=== PATIENT | male | born 1940 | race Caucasian/White ===

== ENCOUNTER 2018-01-17 09:23 | Inpatient (IN) | payer OTHER ==
[2018-01-17] VITALS (8 sets, daily range): BP systolic 101–139; BP diastolic 63–77
[~2018-01-17] VITALS: Ht 170.2 cm; Wt 80.7 kg
[2018-01-17 09:47] LABS: microscopic required? NO
[2018-01-17 10:27] LABS: urine erythrocyte NEGATIVE (NEGATIVE)
[2018-01-17] MEDS ORDERED: VENTOLIN H0.09 MG/A1 INH (10:28)
[2018-01-17 10:35] LABS: PLATELET COUNT 196 x10^3mcL (130-400); RED CELL DISTRIBUTION WIDTH 13.5 % (11.5-14.5)
[2018-01-17] MEDS ORDERED: ATORVASTATIN CA40 M1 PO (10:35)
[2018-01-17] MEDS ORDERED: PRAZOSIN HYDROCH1 MG (10:35)
[2018-01-17 10:38] LABS: CALCIUM 7.9 mg/dL (8.5-10.1); CARBON DIOXIDE 27.4 mmol/L (21-32); CHLORIDE SERUM 107 mmol/L (98-107); CREATININE SERUM 1.6 mg/dL (0.7-1.3); GLUCOSE SERUM 153 mg/dL (74-106); POTASSIUM SERUM 4.9 mmol/L (3.5-5.1); SODIUM SERUM 142 mmol/L (136-145)
[2018-01-17] MEDS ORDERED: DRISDOL50000 IU PO (10:38)
[2018-01-17] MEDS ORDERED: COZAAR100 MG PO (10:38)
[2018-01-17] MEDS ORDERED: LEVOTHYROXINE0.1 M2 PO (10:38)
[2018-01-17] MEDS ORDERED: NOR5 PO (10:39)
[2018-01-17 10:43] LABS: ALBUMIN 2.4 g/dL (3.4-5.0); ALKALINE PHOSPHATASE 91 U/L (46-116); ALT/SGPT 12 U/L (16-63); AST/SGOT 39 U/L (15-37); BILIRUBIN TOTAL 0.63 mg/dL (0.20-1.00); CHOLESTEROL 133 mg/dL (<200); HDL CHOLESTEROL 39 mg/dL (40-60); TOTAL PROTEIN, SERUM 7.1 g/dL (6.4-8.2)
[2018-01-17 11:38] LABS: BAND NEUTROPHIL 19 % (0-10); BASOPHIL 0 % (0-2); MONOCYTE 25 % (0-7); SEGMENTED NEUTROPHILS 19 % (37-75)
[2018-01-17 11:42] LABS: rbc morphology (normal/abnorm) NORMAL (NORMAL)
[2018-01-18] VITALS (14 sets, daily range): BP systolic 92–148; BP diastolic 55–85
[2018-01-18 05:24] LABS: PLATELET COUNT 214 x10^3mcL (130-400); RED CELL DISTRIBUTION WIDTH 13.9 % (11.5-14.5)
[2018-01-18 05:35] LABS: CALCIUM 7.8 mg/dL (8.5-10.1); CARBON DIOXIDE 26.5 mmol/L (21-32); CHLORIDE SERUM 106 mmol/L (98-107); CREATININE SERUM 1.2 mg/dL (0.7-1.3); GLUCOSE SERUM 186 mg/dL (74-106); PHOSPHOROUS 2.1 mg/dL (2.5-4.9); POTASSIUM SERUM 4.3 mmol/L (3.5-5.1); SODIUM SERUM 137 mmol/L (136-145)
[2018-01-18 05:42] LABS: BAND NEUTROPHIL 5 % (0-10); METAMYELOCTE 1 % (0-2); MONOCYTE 12 % (0-7); SEGMENTED NEUTROPHILS 68 % (37-75)
[2018-01-18 05:43] LABS: rbc morphology (normal/abnorm) ABNORMAL (NORMAL)
[2018-01-18 05:44] LABS: PLATELET MORPHOLOGY FEW LARGE PLATELET; ovalocyte/elliptocyte 1+
[2018-01-19 03:25] VITALS: BP 106/63
[2018-01-19 05:33] LABS: BASOPHIL % 0.9 % (0-2); PLATELET COUNT 226 x10^3mcL (130-400)
[2018-01-19 05:44] LABS: CALCIUM 8.2 mg/dL (8.5-10.1); CARBON DIOXIDE 32.5 mmol/L (21-32); CHLORIDE SERUM 109 mmol/L (98-107); CREATININE SERUM 1.3 mg/dL (0.7-1.3); GLUCOSE SERUM 108 mg/dL (74-106); MAGNESIUM 2.1 mg/dL (1.8-2.4); POTASSIUM SERUM 4.2 mmol/L (3.5-5.1); SODIUM SERUM 146 mmol/L (136-145)
[2018-01-19 07:56] VITALS: BP 146/63
[2018-01-19 08:51] VITALS: Ht 170.2 cm; Wt 80.7 kg
[2018-01-19 11:48] VITALS: BP 153/68
[2018-01-19 15:22] VITALS: BP 163/69
[2018-01-19 18:21] VITALS: BP 157/71
[2018-01-19 19:58] VITALS: BP 141/68
[2018-01-20] VITALS (8 sets, daily range): BP systolic 93–149; BP diastolic 63–77
== END 2018-01-20 22:08 | DRG 871 ==
LOC: ED → DU 12:05 → IC 12:05 → DU 01-19 18:02
PROVIDERS: Emergency Medicine; Internal Medicine Pulmonary Disease
PROC: 5A1935Z Respiratory Ventilation, Less than 24 Consecutive Hours (ICD-10-PCS; principal; 2018-01-17)
PROC: 0BH17EZ Insertion of Endotracheal Airway into Trachea, Via Natural or Artificial Opening (ICD-10-PCS; 2018-01-17)
DX: A41.9 Sepsis, unspecified organism (principal); J96.00 Acute respiratory failure, unspecified whether with hypoxia or hypercapnia; J18.9 Pneumonia, unspecified organism; I12.9 Hypertensive chronic kidney disease with stage 1 through stage 4 chronic kidney disease, or unspecified chronic kidney disease; N18.3 Chronic kidney disease, stage 3 (moderate); E78.5 Hyperlipidemia, unspecified; N40.0 Benign prostatic hyperplasia without lower urinary tract symptoms; Y95 Nosocomial condition
CPT/HCPCS: 36600; 83880; 87804; 97110-GP; 97530-GP; A4628; C9113; J2060; J2543; J2704; J2930; J3010; J3370; J7030; J7042; J7613; Q0092

== ENCOUNTER 2018-01-24 07:01 | Inpatient (IN) | payer OTHER ==
[~2018-01-24] VITALS: Ht 170.2 cm; Wt 80.5 kg
[~2018-01-24 07:01] MED LIST: ATORVASTATIN CA40 M1 PO; COZAAR100 MG PO; DRISDOL50000 IU PO; LEVOTHYROXINE0.1 M2 PO; NOR5 PO; PRAZOSIN HYDROCH1 MG; VENTOLIN H0.09 MG/A1 INH
[2018-01-24] MEDS ORDERED: METOPROLOL SUCC50 M2 PO (07:40)
[2018-01-24] MEDS ORDERED: APAP/HYDROCODON1 T13 PO (07:40)
[2018-01-24] MEDS ORDERED: IBUPROFEN400 MG PO (07:41)
[2018-01-24] MEDS ORDERED: COLACE100 MG PO (07:41)
[2018-01-24 07:50] LABS: PLATELET COUNT 286 x10^3mcL (130-400); RED CELL DISTRIBUTION WIDTH 14.1 % (11.5-14.5)
[2018-01-24 08:24] LABS: CALCIUM 8.8 mg/dL (8.5-10.1); CARBON DIOXIDE 31.3 mmol/L (21-32); CHLORIDE SERUM 105 mmol/L (98-107); CREATININE SERUM 1.2 mg/dL (0.7-1.3); GLUCOSE SERUM 111 mg/dL (74-106); POTASSIUM SERUM 3.8 mmol/L (3.5-5.1); SODIUM SERUM 142 mmol/L (136-145)
[2018-01-24 08:29] LABS: ALBUMIN 2.8 g/dL (3.4-5.0); ALKALINE PHOSPHATASE 87 U/L (46-116); ALT/SGPT 48 U/L (16-63); AMYLASE 99 U/L (25-115); AST/SGOT 31 U/L (15-37); BILIRUBIN TOTAL 0.52 mg/dL (0.20-1.00); CHOLESTEROL 141 mg/dL (<200); HDL CHOLESTEROL 41 mg/dL (40-60); LIPASE 227 IU/L (73-393); T4(THYROXINE) 6.4 ug/dL (4.7-13.3); TOTAL PROTEIN, SERUM 8.2 g/dL (6.4-8.2)
[2018-01-24 08:39] LABS: microscopic required? NO
[2018-01-24 09:08] LABS: BAND NEUTROPHIL 15 % (0-10)
[2018-01-24 09:09] LABS: ATYPICAL LYMPH 3 %; MONOCYTE 18 % (0-7); SEGMENTED NEUTROPHILS 40 % (37-75)
[2018-01-24 09:10] LABS: PLATELET MORPHOLOGY PLATELETS NORMAL; rbc morphology (normal/abnorm) NORMAL (NORMAL)
[2018-01-24 09:14] LABS: UA SPECIFIC GRAVITY 1.015 (1.005-1.035); urine erythrocyte NEGATIVE (NEGATIVE)
[2018-01-24 11:15] LABS: AMPHETAMINE QUAL UR NONE DETECTED (See below)
[2018-01-24 12:54] VITALS: BP 144/74
[2018-01-24 14:40] VITALS: BP 142/69
[2018-01-24 19:07] VITALS: BP 129/66
[2018-01-24 20:49] VITALS: BP 131/72
[2018-01-25 04:31] VITALS: BP 157/70
[2018-01-25 07:50] VITALS: BP 158/68
[2018-01-25 07:54] LABS: PLATELET COUNT 268 x10^3mcL (130-400); RED CELL DISTRIBUTION WIDTH 13.7 % (11.5-14.5)
[2018-01-25 07:55] LABS: CALCIUM 8.8 mg/dL (8.5-10.1); CARBON DIOXIDE 31.5 mmol/L (21-32); CHLORIDE SERUM 102 mmol/L (98-107); CREATININE SERUM 1.1 mg/dL (0.7-1.3); GLUCOSE SERUM 163 mg/dL (74-106); MAGNESIUM 2.2 mg/dL (1.8-2.4); POTASSIUM SERUM 3.9 mmol/L (3.5-5.1); SODIUM SERUM 137 mmol/L (136-145)
[2018-01-25 07:58] LABS: BASOPHIL % 0 % (0-2)
[2018-01-25 12:40] VITALS: BP 120/63
[2018-01-25 16:34] VITALS: BP 107/53
[2018-01-25 21:30] VITALS: BP 133/64
[2018-01-26 04:44] VITALS: BP 125/63
[2018-01-26 06:38] LABS: PLATELET COUNT 278 x10^3mcL (130-400); RED CELL DISTRIBUTION WIDTH 14.2 % (11.5-14.5)
[2018-01-26 06:46] LABS: BASOPHIL % 0 % (0-2)
[2018-01-26 07:05] LABS: CALCIUM 9.2 mg/dL (8.5-10.1); CHLORIDE SERUM 102 mmol/L (98-107); CREATININE SERUM 1.1 mg/dL (0.7-1.3); GLUCOSE SERUM 169 mg/dL (74-106); MAGNESIUM 2.4 mg/dL (1.8-2.4); POTASSIUM SERUM 4.6 mmol/L (3.5-5.1); SODIUM SERUM 138 mmol/L (136-145)
[2018-01-26 08:48] VITALS: BP 120/57
[2018-01-26 12:07] VITALS: BP 133/59
[2018-01-26 16:50] VITALS: BP 129/61
[2018-01-26 21:21] VITALS: BP 127/56
[2018-01-27 04:56] VITALS: BP 143/63
[2018-01-27 07:03] LABS: PLATELET COUNT 283 x10^3mcL (130-400)
[2018-01-27 07:13] LABS: CALCIUM 8.9 mg/dL (8.5-10.1); CARBON DIOXIDE 31.5 mmol/L (21-32); CHLORIDE SERUM 102 mmol/L (98-107); CREATININE SERUM 1.1 mg/dL (0.7-1.3); GLUCOSE SERUM 168 mg/dL (74-106); MAGNESIUM 2.5 mg/dL (1.8-2.4); POTASSIUM SERUM 4.7 mmol/L (3.5-5.1); SODIUM SERUM 137 mmol/L (136-145)
[2018-01-27 09:18] VITALS: BP 130/62
[2018-01-27 09:28] VITALS: BP 131/78
[2018-01-27 11:14] LABS: BAND NEUTROPHIL 1 % (0-10); BASOPHIL 0 % (0-2); METAMYELOCTE 1 % (0-2)
[2018-01-27 11:15] LABS: MONOCYTE 4 % (0-7); SEGMENTED NEUTROPHILS 90 % (37-75)
[2018-01-27 13:36] VITALS: BP 94/55
[2018-01-27 16:00] VITALS: BP 128/60
[2018-01-27 21:31] VITALS: BP 94/64
[2018-01-28 05:47] VITALS: BP 126/69
[2018-01-28 06:58] LABS: PLATELET COUNT 278 x10^3mcL (130-400); RED CELL DISTRIBUTION WIDTH 14.2 % (11.5-14.5)
[2018-01-28 07:05] LABS: ALKALINE PHOSPHATASE 71 U/L (46-116); ALT/SGPT 34 U/L (16-63); AST/SGOT 23 U/L (15-37); BILIRUBIN TOTAL 0.3 mg/dL (0.20-1.00); CALCIUM 9.1 mg/dL (8.5-10.1); CARBON DIOXIDE 32.4 mmol/L (21-32); CHLORIDE SERUM 101 mmol/L (98-107); GLUCOSE SERUM 153 mg/dL (74-106); MAGNESIUM 2.4 mg/dL (1.8-2.4); PHOSPHOROUS 3.6 mg/dL (2.5-4.9); POTASSIUM SERUM 4.6 mmol/L (3.5-5.1); SODIUM SERUM 140 mmol/L (136-145)
[2018-01-28 07:35] LABS: ALBUMIN 2.5 g/dL (3.4-5.0)
[2018-01-28 08:26] VITALS: BP 120/50
[2018-01-28 10:10] VITALS: BP 133/69
[2018-01-28 10:32] LABS: BAND NEUTROPHIL 1 % (0-10); BASOPHIL 0 % (0-2); METAMYELOCTE 1 % (0-2); MONOCYTE 5 % (0-7); SEGMENTED NEUTROPHILS 88 % (37-75); rbc morphology (normal/abnorm) ABNORMAL (NORMAL)
[2018-01-28 10:34] LABS: ovalocyte/elliptocyte 1+
[2018-01-28 10:35] LABS: burr cell (echinocyte) 1+
[2018-01-28 13:19] VITALS: BP 116/58
[2018-01-28] MEDS ORDERED: CEFEPIME HYDROCH1 GM IJ (13:51)
[2018-01-28] MEDS ORDERED: SOL40I IV (13:51)
[2018-01-28] MEDS ORDERED: PHECLUD PO (13:52)
[2018-01-28] MEDS ORDERED: TYL325 PO (13:52)
[2018-01-28] MEDS ORDERED: HUMULIN R100 U/1 M1 SC (13:52)
[2018-01-28] MEDS ORDERED: ATI1 PO (13:52)
[2018-01-28] MEDS ORDERED: BUDESONIDE0.5 MG/2 M IH (13:52)
[2018-01-28] MEDS ORDERED: ZOFI IV (13:52)
[2018-01-28] MEDS ORDERED: HEP5I SC (13:53)
[2018-01-28] MEDS ORDERED: IPRATROPIUM BROM3 M2 HHN ×2 (13:53)
[2018-01-28] MEDS ORDERED: LEVOFLOXACIN500 M1 IV (13:54)
[2018-01-28] MEDS ORDERED: CLINDAMYCI600 MG/51 IV (13:55)
[2018-01-28] MEDS ORDERED: GLUCOTROL5 MG PO (14:03)
[2018-01-28 16:47] VITALS: BP 112/58
[2018-01-28 21:00] VITALS: BP 107/52
[2018-01-29 04:53] VITALS: BP 145/73
[2018-01-29 09:45] VITALS: BP 132/82
[2018-01-29 11:47] VITALS: BP 124/61
[2018-01-29 13:18] VITALS: BP 124/61
[2018-01-29 17:45] VITALS: BP 101/50
[2018-01-29 21:44] VITALS: BP 91/50
[2018-01-30 05:51] VITALS: BP 137/61
[2018-01-30 07:45] LABS: CALCIUM 8.9 mg/dL (8.5-10.1); CARBON DIOXIDE 35.5 mmol/L (21-32); CHLORIDE SERUM 101 mmol/L (98-107); CREATININE SERUM 1.2 mg/dL (0.7-1.3); GLUCOSE SERUM 166 mg/dL (74-106); MAGNESIUM 2.7 mg/dL (1.8-2.4); POTASSIUM SERUM 4.8 mmol/L (3.5-5.1); SODIUM SERUM 140 mmol/L (136-145)
[2018-01-30 07:46] VITALS: BP 137/61
[2018-01-30 08:02] LABS: PLATELET COUNT 241 x10^3mcL (130-400)
[2018-01-30 08:03] LABS: BASOPHIL % 0 % (0-2); RED CELL DISTRIBUTION WIDTH 14.7 % (11.5-14.5)
[2018-01-30 08:35] VITALS: BP 115/55
[2018-01-30 10:34] LABS: ERYTHROCYTE SED RATE 80 mm/hr (0-20)
[2018-01-30 12:36] VITALS: BP 110/52
[2018-01-30 17:06] VITALS: BP 113/52
[2018-01-30 20:57] VITALS: BP 100/48
[2018-01-31] VITALS (8 sets, daily range): BP systolic 107–146; BP diastolic 51–64
[2018-02-01 05:12] VITALS: BP 100/58
[2018-02-01 06:18] LABS: PLATELET COUNT 246 x10^3mcL (130-400); RED CELL DISTRIBUTION WIDTH 14.5 % (11.5-14.5)
[2018-02-01 06:38] LABS: CALCIUM 8.7 mg/dL (8.5-10.1); CHLORIDE SERUM 105 mmol/L (98-107); CREATININE SERUM 0.9 mg/dL (0.7-1.3); GLUCOSE SERUM 70 mg/dL (74-106); POTASSIUM SERUM 4.2 mmol/L (3.5-5.1); SODIUM SERUM 144 mmol/L (136-145)
[2018-02-01 08:30] VITALS: BP 127/62
[2018-02-01 10:03] LABS: BAND NEUTROPHIL 0 % (0-10); BASOPHIL 0 % (0-2); MONOCYTE 1 % (0-7); SEGMENTED NEUTROPHILS 99 % (37-75)
[2018-02-01 10:05] LABS: PLATELET MORPHOLOGY PLATELETS NORMAL; rbc morphology (normal/abnorm) ABNORMAL (NORMAL)
[2018-02-01 12:30] VITALS: BP 108/59
[2018-02-01 16:28] VITALS: BP 137/69
[2018-02-01 21:27] VITALS: BP 127/63
[2018-02-02 05:12] VITALS: BP 141/60
[2018-02-02 07:00] LABS: PLATELET COUNT 202 x10^3mcL (130-400); RED CELL DISTRIBUTION WIDTH 14.5 % (11.5-14.5)
[2018-02-02 07:10] LABS: BASOPHIL % 0 % (0-2)
[2018-02-02 07:26] LABS: ALKALINE PHOSPHATASE 88 U/L (46-116); ALT/SGPT 31 U/L (16-63); AST/SGOT 31 U/L (15-37); BILIRUBIN DIRECT 0.14 mg/dL (0.0-0.2); BILIRUBIN TOTAL 0.6 mg/dL (0.20-1.00); CALCIUM 8.8 mg/dL (8.5-10.1); CARBON DIOXIDE 34.2 mmol/L (21-32); CHLORIDE SERUM 100 mmol/L (98-107); GLUCOSE SERUM 97 mg/dL (74-106); POTASSIUM SERUM 4.4 mmol/L (3.5-5.1); SODIUM SERUM 139 mmol/L (136-145); TOTAL PROTEIN, SERUM 6.5 g/dL (6.4-8.2)
[2018-02-02 09:18] VITALS: BP 111/53
[2018-02-02 12:34] VITALS: BP 94/71
[2018-02-02 16:57] VITALS: BP 158/64
[2018-02-02 22:45] VITALS: BP 125/83; BP 169/73
[2018-02-03] VITALS (8 sets, daily range): BP systolic 75–132; BP diastolic 48–70
[2018-02-03 06:50] LABS: PLATELET COUNT 223 x10^3mcL (130-400)
[2018-02-03 06:54] LABS: BASOPHIL % 0 % (0-2)
[2018-02-03 07:03] LABS: CALCIUM 8.9 mg/dL (8.5-10.1); CARBON DIOXIDE 30.2 mmol/L (21-32); CHLORIDE SERUM 99 mmol/L (98-107); GLUCOSE SERUM 152 mg/dL (74-106); LACTIC DEHYDROGENASE (LDH) 483 U/L (100-190); POTASSIUM SERUM 4.2 mmol/L (3.5-5.1); SODIUM SERUM 138 mmol/L (136-145)
[2018-02-04] VITALS (15 sets, daily range): BP systolic 73–130; BP diastolic 38–63
[2018-02-04 07:39] LABS: PLATELET COUNT 184 x10^3mcL (130-400)
[2018-02-04 07:44] LABS: BASOPHIL % 0 % (0-2); RED CELL DISTRIBUTION WIDTH 14.9 % (11.5-14.5)
[2018-02-04 07:47] LABS: ALBUMIN 1.8 g/dL (3.4-5.0); ALKALINE PHOSPHATASE 90 U/L (46-116); ALT/SGPT 37 U/L (16-63); AST/SGOT 31 U/L (15-37); BILIRUBIN TOTAL 0.4 mg/dL (0.20-1.00); CALCIUM 8.5 mg/dL (8.5-10.1); CARBON DIOXIDE 31.8 mmol/L (21-32); CHLORIDE SERUM 101 mmol/L (98-107); CREATININE SERUM 1.1 mg/dL (0.7-1.3); GLUCOSE SERUM 137 mg/dL (74-106); POTASSIUM SERUM 3.9 mmol/L (3.5-5.1); SODIUM SERUM 140 mmol/L (136-145); TOTAL PROTEIN, SERUM 6.1 g/dL (6.4-8.2)
[2018-02-04 09:14] LABS: RHEUMATOID ARTHRITIS FACTOR 63.5 IU/mL (0.0-13.9)
[2018-02-05] VITALS (19 sets, daily range): BP systolic 83–135; BP diastolic 45–66
[2018-02-05 05:36] LABS: PLATELET COUNT 158 x10^3mcL (130-400)
[2018-02-05 05:44] LABS: ALKALINE PHOSPHATASE 102 U/L (46-116); ALT/SGPT 60 U/L (16-63); AST/SGOT 67 U/L (15-37); BILIRUBIN DIRECT 0.37 mg/dL (0.0-0.2); BILIRUBIN TOTAL 0.69 mg/dL (0.20-1.00); CALCIUM 8.2 mg/dL (8.5-10.1); CARBON DIOXIDE 34.5 mmol/L (21-32); CHLORIDE SERUM 101 mmol/L (98-107); CREATININE SERUM 2.3 mg/dL (0.7-1.3); GLUCOSE SERUM 67 mg/dL (74-106); POTASSIUM SERUM 4.3 mmol/L (3.5-5.1); SODIUM SERUM 141 mmol/L (136-145); TOTAL PROTEIN, SERUM 6.4 g/dL (6.4-8.2)
[2018-02-05 05:45] LABS: ALBUMIN 1.8 g/dL (3.4-5.0)
[2018-02-05 05:48] LABS: RED CELL DISTRIBUTION WIDTH 15.2 % (11.5-14.5)
[2018-02-05 06:02] LABS: MONOCYTE 5 % (0-7); SEGMENTED NEUTROPHILS 91 % (37-75)
[2018-02-05 06:04] LABS: BAND NEUTROPHIL 1 % (0-10); BASOPHIL 0 % (0-2)
[2018-02-05 06:24] LABS: rbc morphology (normal/abnorm) ABNORMAL (NORMAL)
[2018-02-06] VITALS (17 sets, daily range): BP systolic 84–161; BP diastolic 44–75
[2018-02-06 05:27] LABS: PLATELET COUNT 144 x10^3mcL (130-400); RED CELL DISTRIBUTION WIDTH 15.1 % (11.5-14.5)
[2018-02-06 05:42] LABS: ALKALINE PHOSPHATASE 121 U/L (46-116); ALT/SGPT 78 U/L (16-63); AST/SGOT 84 U/L (15-37); BILIRUBIN DIRECT 0.28 mg/dL (0.0-0.2); CALCIUM 7.6 mg/dL (8.5-10.1); CARBON DIOXIDE 30.2 mmol/L (21-32); CHLORIDE SERUM 102 mmol/L (98-107); GLUCOSE SERUM 241 mg/dL (74-106); POTASSIUM SERUM 4.5 mmol/L (3.5-5.1); SODIUM SERUM 141 mmol/L (136-145)
[2018-02-06 05:44] LABS: ALBUMIN 1.6 g/dL (3.4-5.0); TOTAL PROTEIN, SERUM 5.5 g/dL (6.4-8.2)
[2018-02-06 06:06] LABS: BAND NEUTROPHIL 8 % (0-10); SEGMENTED NEUTROPHILS 90 % (37-75); rbc morphology (normal/abnorm) NORMAL (NORMAL)
[2018-02-06 06:08] LABS: PLATELET MORPHOLOGY PLATELETS NORMAL
[2018-02-06 22:06] LABS: microscopic required? YES; urine erythrocyte 3+ (NEGATIVE)
[2018-02-06 22:10] LABS: CREATININE UR 25.6 mg/dL
[2018-02-07] VITALS (19 sets, daily range): BP systolic 80–114; BP diastolic 44–59; Ht 170.2 cm; Wt 80.5 kg
[2018-02-07 06:03] LABS: BASOPHIL % 0 % (0-2); PLATELET COUNT 126 x10^3mcL (130-400); RED CELL DISTRIBUTION WIDTH 15.5 % (11.5-14.5)
[2018-02-07 06:07] LABS: CALCIUM 7.7 mg/dL (8.5-10.1); CARBON DIOXIDE 30.3 mmol/L (21-32); CHLORIDE SERUM 104 mmol/L (98-107); GLUCOSE SERUM 154 mg/dL (74-106); POTASSIUM SERUM 4.3 mmol/L (3.5-5.1); SODIUM SERUM 142 mmol/L (136-145)
[2018-02-07 06:25] LABS: ALKALINE PHOSPHATASE 138 U/L (46-116); ALT/SGPT 52 U/L (16-63); AST/SGOT 74 U/L (15-37); BILIRUBIN TOTAL 0.37 mg/dL (0.20-1.00); CALCIUM 8.1 mg/dL (8.5-10.1); CARBON DIOXIDE 29.7 mmol/L (21-32); CHLORIDE SERUM 103 mmol/L (98-107); GLUCOSE SERUM 153 mg/dL (74-106); MAGNESIUM 3.4 mg/dL (1.8-2.4); POTASSIUM SERUM 4.3 mmol/L (3.5-5.1); SODIUM SERUM 142 mmol/L (136-145)
[2018-02-07 06:27] LABS: ALBUMIN 1.4 g/dL (3.4-5.0); TOTAL PROTEIN, SERUM 5.9 g/dL (6.4-8.2)
[2018-02-08] VITALS (16 sets, daily range): BP systolic 92–166; BP diastolic 45–76
[2018-02-08 05:25] LABS: BASOPHIL % 0 % (0-2); PLATELET COUNT 127 x10^3mcL (130-400); RED CELL DISTRIBUTION WIDTH 15.6 % (11.5-14.5)
[2018-02-08 05:48] LABS: ALKALINE PHOSPHATASE 129 U/L (46-116); ALT/SGPT 69 U/L (16-63); AST/SGOT 72 U/L (15-37); BILIRUBIN TOTAL 0.43 mg/dL (0.20-1.00); CALCIUM 7.9 mg/dL (8.5-10.1); CARBON DIOXIDE 33.6 mmol/L (21-32); CHLORIDE SERUM 99 mmol/L (98-107); GLUCOSE SERUM 150 mg/dL (74-106); MAGNESIUM 2.8 mg/dL (1.8-2.4); POTASSIUM SERUM 4.7 mmol/L (3.5-5.1); SODIUM SERUM 136 mmol/L (136-145); TOTAL PROTEIN, SERUM 6.6 g/dL (6.4-8.2)
[2018-02-08 05:50] LABS: ALBUMIN 1.6 g/dL (3.4-5.0); CREATININE SERUM 4.3 mg/dL (0.7-1.3)
[2018-02-08 06:14] LABS: PHOSPHOROUS 9.9 mg/dL (2.5-4.9)
[2018-02-08 14:30] LABS: cnab c-anca <1:20 titer (Neg:<1:20); cnab p-anca <1:20 titer (Neg:<1:20)
== END 2018-02-09 02:12 | disposition expired | DRG 870 ==
LOC: ED 07:01 → DU 10:54 → IC 10:54 → EDBEDREQ 10:55 → DU 12:04 → IC 02-03 15:45
PROVIDERS: Emergency Medicine; Internal Medicine; Internal Medicine Pulmonary Disease
PROC: 5A1955Z Respiratory Ventilation, Greater than 96 Consecutive Hours (ICD-10-PCS; 2018-02-03)
PROC: 0BH17EZ Insertion of Endotracheal Airway into Trachea, Via Natural or Artificial Opening (ICD-10-PCS; 2018-02-03)
PROC: 05HM33Z Insertion of Infusion Device into Right Internal Jugular Vein, Percutaneous Approach (ICD-10-PCS; principal; 2018-02-07)
PROC: B543ZZA Ultrasonography of Right Jugular Veins, Guidance (ICD-10-PCS; 2018-02-07)
PROC: 5A1D70Z Performance of Urinary Filtration, Intermittent, Less than 6 Hours Per Day (ICD-10-PCS; 2018-02-07)
DX: A41.9 Sepsis, unspecified organism (principal); J18.9 Pneumonia, unspecified organism; J96.21 Acute and chronic respiratory failure with hypoxia; N17.0 Acute kidney failure with tubular necrosis; R65.21 Severe sepsis with septic shock; J44.1 Chronic obstructive pulmonary disease with (acute) exacerbation; I50.9 Heart failure, unspecified; E78.5 Hyperlipidemia, unspecified; I12.9 Hypertensive chronic kidney disease with stage 1 through stage 4 chronic kidney disease, or unspecified chronic kidney disease; N18.9 Chronic kidney disease, unspecified; E11.22 Type 2 diabetes mellitus with diabetic chronic kidney disease; N40.0 Benign prostatic hyperplasia without lower urinary tract symptoms; D64.9 Anemia, unspecified; E03.9 Hypothyroidism, unspecified; Z99.81 Dependence on supplemental oxygen; Z87.891 Personal history of nicotine dependence
CPT/HCPCS: 36556; 36600; 82308; 82785; 82962; 83520; 83880; 86256; 86431; 86480; 87116; 87206; 87804; 94150; A4719; J0171; J0692; J1644; J1815; J1940; J1956; J2060; J2543; J2704; J2920; J2930; J3010; J3370; J3490; J7030; J7040; J7042; J7050; J7613; J7620; J7626; J7644; P9047; Q0092